=== PATIENT | female | born 1995 | race Caucasian/White ===

== ENCOUNTER 2019-03-04 19:10 | Observation (INO) | payer OTHER ==
--- NOTE | 2019-03-04 19:49 | ED ---
Abdominal Pain/Female - HPI Summary HPI Summary: The patient is a 23 y/o F presenting to [facility] accompanied by parents with a chief complaint of sudden onset lower abdominal pain onset around 1200 with worsening since. She reports that she went to [facility] once she developed chills, nausea, and vomiting at 1400 with the abdominal pain across the low abdomen still present, and it was found through blood work that she has elevated WBCs. The abdominal cramping extends from the LLQ to RLQ, but is worst at the suprapubic and umbilical regions. She has been unable to keep liquids, and she denies any diarrhea or dysuria. Currently, her symptoms are rated 9/10 in severity. She has taken three Advil at 1330, Pepto-Bismol at 1430 and 1730, and Zofran at 1845 to no relief of symptoms. She has not experienced this pain before. LNMP: 03/04/19. Takes oral control. No surgical history. PMHx: psoriasis. FHx: polycystic kidney disease. Nonsmoker, weekly EtOH, no substance use. Medications reviewed. Allergies noted. - History of Current Complaint Chief Complaint: EDAbdPain Stated Complaint: HIGH BLOODE CELL COUNT,ABDOMINAL PAIN PER PT Time Seen by Provider: 03/04/19 19:25 Hx Obtained From: Patient Onset/Duration: Sudden Onset, Lasting Hours - since 1200 today, Still Present Timing: Constant Severity Initially: Moderate Severity Currently: Severe Pain Intensity: 9 Pain Scale Used: 0-10 Numeric Location: Discrete At: RUQ, Discrete At: LUQ, Suprapubic, Umbilical Character: Cramping Aggravating Factor(s): Nothing Alleviating Factor(s): Nothing - self-administered meds to no relief Associated Signs and Symptoms: Positive: Decreased Appetite, Nausea, Vomiting, Other: - chills; Negative: dysuria. Negative: Diarrhea Allergies/Adverse Reactions: Allergies Allergy/AdvReac Type Severity Reaction Status Date / Time No Known Allergies Allergy Verified 03/04/19 19:17 Home Medications: Home Medications Norethindrone AC-Eth Estradiol [Loestrin 1.5/30-21 1.5-30 mg-Mcg] 1 tab PO DAILY 03/04/19 [History Confirmed 03/04/19] PMH/Surg Hx/FS Hx/Imm Hx Endocrine/Hematology History: Reports: Other Endocrine/Hematological Disorders - Psoriasis Denies: Hx Diabetes Respiratory History: Denies: Hx Asthma - Surgical History Surgical History: None Surgery Procedure, Year, and Place: none Infectious Disease History: No Infectious Disease History: Denies: Traveled Outside the [place] in Last 30 Days - Family History Known Family History: Positive: Renal Disease - polycystic kidney disease, Other - breast cancer in mother Negative: Cardiac Disease, Hypertension, Diabetes - Social History Alcohol Use: Weekly Hx Substance Use: No Substance Use Type: Reports: None Hx Tobacco Use: No Smoking Status (MU): Never Smoked Tobacco Review of Systems - ROS Summary Review of Systems Summary: Home Medications Medication Instructions Recorded Confirmed Type Norethindrone AC-Eth Estradiol 1 tab PO DAILY 03/04/19 03/04/19 History [Loestrin 1.5/30-21 1.5-30 mg-Mcg] Positive: Chills Positive: Abdominal Pain - across the lower abdomen worst in the suprapubic and umbilical regions, Vomiting - multiple episodes, Nausea, Other - decreased appetite and oral intake. Negative: Diarrhea Negative: dysuria All Other Systems Reviewed And Are Negative: Yes Physical Exam - Summary Physical Exam Summary: General: Well-developed, Well-nourished female. Appears to be in moderate discomfort. HEENT: Normocephalic, Atraumatic. Eyes: Conjuctiva normal, PERRL. Ears: TMs within normal limits. Nares: (-) discharge, (-) erythema. Oropharynx: Clear, mucous membranes moist, (-) exudates. Neck: Soft, FROM, (-) lymphadenopathy, (-) thyromegaly, (-) JVD. Cardiovascular: Normal sinus rhythm, (-) murmur. Lungs: Clear to auscultation bilaterally (-) wheezes, (-) rales, (-) rhonchi. Abdomen: Soft, moderate suprapubic and umbilical tenderness, non-distended, (-) organomegaly, normal bowel sounds. Back: (-) CVA tenderness Extremities: No edema. Skin: Warm, dry, (-) rash. Neuro: Alert and oriented x3, no focal deficits. Psychiatric: Mood normal, affect normal. Triage Information Reviewed: Yes Vital Signs On Initial Exam: Initial Vitals Temp Pulse Resp BP Pulse Ox 99 F 93 20 155/119 100 03/04/19 19:17 03/04/19 19:17 03/04/19 19:17 03/04/19 19:17 03/04/19 19:17 Vital Signs Reviewed: Yes Procedures - Sedation Patient Received Moderate/Deep Sedation with Procedure: No Diagnostics - Vital Signs Vital Signs Temp Pulse Resp BP Pulse Ox 03/04/19 19:25 91 100 03/04/19 19:23 86 147/99 100 03/04/19 19:17 99 F 93 20 155/119 100 - Laboratory Result Diagrams: 03/04/19 20:14 03/04/19 20:14 Lab Statement: Any lab studies that have been ordered have been reviewed, and results considered in the medical decision making process. - CT Abd/Pel CT CT Interpretation Completed By: Radiologist Summary of CT Findings: Impression: There is an appendicolith which is a maximum of 6 mm in length and the appendix is mildly dilated measuring a maximum of 8 mm diameter and isodense with no obvious periappendiceal fat stranding, therefore nonspecific but cannot exclude mild or early changes of acute appendicitis without signs of perforation. ED physician has reviewed this report. - Ultrasound Transvaginal US Ultrasound Interpretation Completed By: Radiologist Summary of Ultrasound Findings: Impression: No acute pathology. No solid pelvic mass. The right ovary is not clearly visualized (obscured by bowel gas). The left ovary is unremarkable, with no evidence of torsion. ED physician has reviewed this report. Appendix US Ultrasound Interpretation Completed By: Radiologist Summary of Ultrasound Findings: Impression: No acute findings. No definite evidence of acute appendicitis. ED physician has reviewed this report. Re-Evaluation - Re-Evaluation First Eval Re-Evaluation Time: 20:55 Change: Unchanged Comment: Patient is still in pain. We will order Morphine. Second Eval Re-Evaluation Time: 00:25 Change: Improved Comment: Medications have improved the patient's pain. We discussed all results thus far and plan for further treatment. Abdominal Pain Fem Course/Dx - Course Course Of Treatment: She will be administered fluids, Zofran for nausea, and Toradol for pain. Ultrasounds are ordered to rule out appendicitis or any pelvic conditions. The pain has continued to still be present after Toradol, so she will be given Morphine. Potassium chloride is ordered for hypokalemia. US results are negative, but we will order a CT since the appendix is not visualized. - Diagnoses Provider Diagnoses: Hypokalemia, Acute appendicitis - Provider Notifications Discussed Care Of Patient With: April Dodd - surgery Time Discussed With Above Provider: 00:28 Instructed by Provider To: Other - I discussed the patient's case wtih Dr. Dodd, and she will come to the ED to consult with the patient. At 0130, Dr. Dodd is in the ED, and after speaking with the patient, she agrees with admission for surgery for likely appendicitis. She recommends Zosyn and Morphine. Discharge ED - Sign-Out/Discharge Documenting (check all that apply): Patient Departure - Patient accepted for admission for surgery by Dr. Dodd. - Discharge Plan Condition: Stable Disposition: ADMITTED TO [facility] Referrals: [facility] - Wero [facility]INGHAM [Primary Care Provider] - - Attestation Statements Document Initiated by Scribe: Yes Documenting Scribe: Velia Granger Provider For Whom Yvetteibe is Documenting (Include Credential): Dr. Thao Leggett MD Scribe Attestation: Velia Burden scribed for Dr. Thao Leggett MD on 03/05/19 at 0143. Status of Scribe Document: Ready
[2019-03-04] MEDS ORDERED: Ondansetron INJ* 2 MG/ML VIAL ONE (19:53)
[2019-03-04] MEDS ORDERED: Ketorolac INJ* 15 MG/ML 1 ML VIAL ONE (19:53)
[2019-03-04] MEDS ORDERED: Ketorolac INJ* 15 MG/ML 1 ML VIAL IV PUSH ONE (19:54)
[2019-03-04] MEDS ORDERED: Ondansetron INJ* 2 MG/ML VIAL IV ONE (19:54)
[2019-03-04 20:25] LABS: ABS Lymphocytes 1.1 10^3/ul (1.0-4.8); ABS Monocytes 0.9 10^3/ul (0-0.8); ABS Neutrophils 19.2 10^3/ul (1.5-7.7); Hematocrit 38 % (35-47); Hemoglobin 12.9 g/dL (12.0-16.0); Lymphocyte % 5.1 %; Mean Corpuscular HGB Conc 34 g/dL (31-36); Mean Corpuscular Hemoglobin 30 pg (27-31); Mean Corpuscular Volume 88 fL (80-97); Mean Platelet Volume 8.7 fL (7.4-10.4); Platelet Count 300 10^3/uL (150-450); Red Blood Count 4.32 10^6 /uL (3.70-4.87); Red Cell Distribution Width 13 % (10-15); White Blood Count 21.2 10^3/uL (3.5-10.8)
[2019-03-04 20:33] LABS: INR 0.97 (0.82-1.09)
[2019-03-04 20:44] LABS: Urine Appearance Clear; Urine Bacteria Absent (Absent); Urine Bilirubin Negative (Negative); Urine Blood 2+ (Negative); Urine Color Straw; Urine Glucose Negative (Negative); Urine Ketones 1+ (Negative); Urine Nitrite Negative (Negative); Urine Protein Negative (Negative); Urine Red Blood Cell 1+(3-5/hpf) (Absent); Urine Specific Gravity 1.013 (1.010-1.030); Urine Squamous Epithelial Cell Present (Absent); Urine Urobilinogen Negative (Negative); Urine White Blood Cell Trace(0-5/hpf) (Absent)
[2019-03-04 20:51] LABS: ALT 10 U/L (7-52); AST 14 U/L (13-39); Albumin 4.4 g/dL (3.2-5.2); Albumin/Globulin Ratio 1.6 (1-3); Alkaline Phosphatase 48 U/L (34-104); Anion Gap 10 mmol/L (2-11); BUN/Creatinine Ratio 15.6 (8-20); Blood Urea Nitrogen 7 mg/dL (6-24); C Reactive Protein 18.61 mg/L (<8.01); CO2 Carbon Dioxide 21 mmol/L (22-32); Calcium 9.2 mg/dL (8.6-10.3); Chloride 99 mmol/L (101-111); EGFR African American 212.8 (>60); EGFR Non-African American 175.9 (>60); Globulin 2.7 g/dL (2-4); Glucose 116 mg/dL (70-100); HCG Pregnancy < 0.60 mIU/mL; Potassium 3.2 mmol/L (3.5-5.0); Sodium 130 mmol/L (135-145); Total Protein 7.1 g/dL (6.4-8.9)
[2019-03-04] MEDS ORDERED: KCL 10 MEQ/50 ML IVPREMIX* 10 MEQ/50 ML BAG IV ONE (20:57)
[2019-03-04] MEDS ORDERED: Morphine INJ* 2 MG/ML 1 ML SYRINGE (TWO MG - NEW SYRINGE VERSION) IV PRN (20:57)
[2019-03-04] MEDS ORDERED: NS 0.9% 1000 ML** 1,000 ML IV ONE (21:09)
[2019-03-04] MEDS ORDERED: Ketorolac INJ* 30 MG/ML 1 ML VIAL IV PUSH ONE (23:10)
[2019-03-04] MEDS ORDERED: Iohexol 300* (CONTRAST) 10 ML SDV IV ONE (23:30)
[2019-03-05] MEDS ORDERED: Piperacillin/Tazobac ADVAN(*) 3.375 GM in NS 0.9% 100 ML* 100 ML IVPB ONE (01:28)
[2019-03-05] MEDS ORDERED: Ondansetron INJ* 2 MG/ML VIAL IV PRN (01:29)
[2019-03-05] MEDS ORDERED: Morphine INJ* 2 MG/ML 1 ML SYRINGE (TWO MG - NEW SYRINGE VERSION) IV PRN (01:35)
--- NOTE | 2019-03-05 01:56 | HP ---
H&P (Free Text) History and Physical: Chief complaint: abdominal pain HPI: Valeria is a 23 yo woman with a history of psoriasis who presents to the ED with worsening abdominal pain. She reports the pain started suddenly at about noon and localized to the periumbilical area. She has had anorexia, nausea, and vomiting. She denies fevers. Her period started today, and she initially attributed the pain to menstrual cramps. She took ibuprofen with little relief. She did have some diarrhea this morning but no bowel movements since then. She presented to the [facility] where she was found to have an elevated WBC and was sent to the ED. She denies sick contacts. Past Medical History: Psoriasis Past Surgical History: None Home Medications Medication Instructions Recorded Confirmed Type Norethindrone AC-Eth Estradiol 1 tab PO DAILY 03/04/19 03/04/19 History [Loestrin 1.5/30-21 1.5-30 mg-Mcg] Allergies No Known Allergies Allergy (Verified 03/04/19 19:17) ROS: A complete 14-point review of systems was performed and pertinent findings are noted in HPI. Family History: Mother has a history of breast cancer. Father has history of polycystic kidney disease. Patient has not been tested. Social History: Valeria is a student at [employer]. She denies smoking or substance abuse. She drinks alcohol socially. Her parents live in [place]. Physical Exam: Temp Pulse Resp BP Pulse Ox 99 F 79 25 125/73 98 03/04/19 19:17 03/05/19 01:00 03/05/19 01:00 03/05/19 00:53 03/05/19 01:00 General: Appears uncomfortable but no acute distress. HEENT: Atraumatic, normocephalic. Pupils equal. Moist mucous membranes. Cardio: Regular rhythm and rate. Chest: Clear to auscultation and breathing comfortably on room air. Abdomen: Soft, nondistended. Tender to palpation in periumbilical region. No guarding. Extremities: Warm and well-perfused. No edema. Moves all extremities. Skin: Intact. No rashes or lesions. Neuro: Alert and oriented x3. Diagnostic Labs and Imaging: Laboratory Results WBC 21.2 10^3/uL (3.5-10.8) H 03/04/19 20:14 RBC 4.32 10^6 /uL (3.70-4.87) 03/04/19 20:14 Hgb 12.9 g/dL (12.0-16.0) 03/04/19 20:14 Hct 38 % (35-47) 03/04/19 20:14 MCV 88 fL (80-97) 03/04/19 20:14 MCH 30 pg (27-31) 03/04/19 20:14 MCHC 34 g/dL (31-36) 03/04/19 20:14 RDW 13 % (10-15) 03/04/19 20:14 Plt Count 300 10^3/uL (150-450) 03/04/19 20:14 MPV 8.7 fL (7.4-10.4) 03/04/19 20:14 Neut % (Auto) 90.4 % 03/04/19 20:14 Lymph % (Auto) 5.1 % 03/04/19 20:14 [place] % (Auto) 4.3 % 03/04/19 20:14 Eos % (Auto) 0.0 % 03/04/19 20:14 Baso % (Auto) 0.2 % 03/04/19 20:14 Absolute Neuts (auto) 19.2 10^3/ul (1.5-7.7) H 03/04/19 20:14 Absolute Lymphs (auto) 1.1 10^3/ul (1.0-4.8) 03/04/19 20:14 Absolute Monos (auto) 0.9 10^3/ul (0-0.8) H 03/04/19 20:14 Absolute Eos (auto) 0.0 10^3/ul (0-0.6) 03/04/19 20:14 Absolute Basos (auto) 0.0 10^3/ul (0-0.2) 03/04/19 20:14 Absolute Nucleated RBC 0.0 10^3/ul 03/04/19 20:14 Nucleated RBC % 0.0 03/04/19 20:14 INR (Anticoag Therapy) 0.97 (0.82-1.09) 03/04/19 20:14 Sodium 130 mmol/L (135-145) L 03/04/19 20:14 Potassium 3.2 mmol/L (3.5-5.0) L 03/04/19 20:14 Chloride 99 mmol/L (101-111) L 03/04/19 20:14 Carbon Dioxide 21 mmol/L (22-32) L 03/04/19 20:14 Anion Gap 10 mmol/L (2-11) 03/04/19 20:14 BUN 7 mg/dL (6-24) 03/04/19 20:14 Creatinine 0.45 mg/dL (0.51-0.95) L 03/04/19 20:14 Est GFR ( Amer) 212.8 (>60) 03/04/19 20:14 Est GFR (Non-Af Amer) 175.9 (>60) 03/04/19 20:14 BUN/Creatinine Ratio 15.6 (8-20) 03/04/19 20:14 Glucose 116 mg/dL (70-100) H 03/04/19 20:14 Lactic Acid 1.8 mmol/L (0.5-2.0) 03/04/19 20:14 Calcium 9.2 mg/dL (8.6-10.3) 03/04/19 20:14 Total Bilirubin 0.60 mg/dL (0.2-1.0) 03/04/19 20:14 AST 14 U/L (13-39) 03/04/19 20:14 ALT 10 U/L (7-52) 03/04/19 20:14 Alkaline Phosphatase 48 U/L (34-104) 03/04/19 20:14 C-Reactive Protein 18.61 mg/L (<8.01) H 03/04/19 20:14 Total Protein 7.1 g/dL (6.4-8.9) 03/04/19 20:14 Albumin 4.4 g/dL (3.2-5.2) 03/04/19 20:14 Globulin 2.7 g/dL (2-4) 03/04/19 20:14 Albumin/Globulin Ratio 1.6 (1-3) 03/04/19 20:14 Lipase 11 U/L (11.0-82.0) 03/04/19 20:14 Beta HCG, Quant < 0.60 mIU/mL 03/04/19 20:14 Urine Color Straw 03/04/19 20:21 Urine Appearance Clear 03/04/19 20: Urine pH 6.0 (5-9) 03/04/19 20:21 Ur Specific [place] 1.013 (1.010-1.030) 03/04/19 20:21 Urine Protein Negative (Negative) 03/04/19 20:21 Urine Ketones 1+ (Negative) A 03/04/19 20:21 Urine Blood 2+ (Negative) A 03/04/19 20:21 Urine Nitrate Negative (Negative) 03/04/19 20: Urine Bilirubin Negative (Negative) 03/04/19 20: Urine Urobilinogen Negative (Negative) 03/04/19 20:21 Ur Leukocyte Esterase Negative (Negative) 03/04/19 20: Urine WBC (Auto) Trace(0-5/hpf) (Absent) 03/04/19 20: Urine RBC (Auto) 1+(3-5/hpf) (Absent) A 03/04/19 20:21 Ur Squamous Epith Cells Present (Absent) A 03/04/19 20: Urine Bacteria Absent (Absent) 03/04/19 20: Urine Glucose Negative (Negative) 03/04/19 20:21 Abdominal US: No evidence of acute appendicitis but appendix not identified. Transvaginal US: Unremarkable. Right ovary not visualized. CT abdomen/pelvis: Appendix 8mm. Appendicolith 6mm. Minimal periappendiceal stranding. Assessment and Plan: 23 yo with early acute appendicitis. Will plan to admit and schedule surgery for later today. -Start Zosyn. -Pain control with morphine prn -Zofran for nausea -NPO. LR @ 75 ml/h
[2019-03-05] MEDS ORDERED: Lactated Ringers 1000 ML Bag* 1,000 ML IV SCH (02:00)
[2019-03-05] MEDS ORDERED: Piperacillin/Tazobactam VIAL*) 3.375 GM in NS 0.9% 100 ML* 100 ML IVPB SCH (06:00)
[2019-03-05] MEDS ORDERED: NS 0.9% 1000 ML** 1,000 ML IV SCH (08:30)
[2019-03-05] MEDS ORDERED: Morphine INJ* 4 MG/ML 1 ML SYRINGE (NEW SYRINGE VERSION) ONE (09:22)
[2019-03-05] MEDS ORDERED: Rocuronium* 10 MG/ML VIAL ONE (09:27)
[2019-03-05] MEDS ORDERED: KETAMINE HCL* 50 MG/ML 10 ML VIAL ONE (09:30)
[2019-03-05] MEDS ORDERED: fentaNYL* 50 MCG/ML 2 ML VIAL (100 MCG VIAL) ONE (09:30)
[2019-03-05] MEDS ORDERED: Midazolam* 1 MG/ML 2 ML VIAL (2 MG) ONE (09:31)
--- NOTE | 2019-03-05 09:40 | PN ---
Progress Note - Progress Note Date of Service: 03/05/19 Note: Valeria reports the pain has been tolerable and has not needed more morphine after arriving to the floor. She denies nausea and is actually hungry this morning. No fevers or chills. Temp Pulse Resp BP Pulse Ox 98.3 F 63 18 106/55 99 03/05/19 07:26 03/05/19 07:26 03/05/19 09:30 03/05/19 07:26 03/05/19 07:26 No acute distress. Regular rhythm and rate. Clear to auscultation and breathing comfortably on room air Abdomen soft, nondistended. Tender to palpation in the infraumbilical area and RLQ. No guarding or rebound. Extremities warm and well-perfused. Alert and oriented x3 A&P: 23F with acute appendicitis. -OR today for lap appendectomy. Discussed benefits and risks including but not limited to bleeding, infection, bowel injury. Also discussed nonoperative management. She is not an ideal candidate since she has an appendicolith and there is a risk of recurrence. The patient and her mother agree with appendectomy. -NPO. NS@ 75ml -Patient received Zosyn this morning.
[2019-03-05] MEDS ORDERED: Dexamethasone IV* 4 MG/ML 1 ML (4 MG) IV SLOW PU ONE (09:47)
[2019-03-05] MEDS ORDERED: Dexamethasone IV* 4 MG/ML 1 ML (4 MG) ONE (09:47)
[2019-03-05] MEDS ORDERED: Famotidine IV* 10 MG/ML 2 ML (20 mg) ONE (09:48)
[2019-03-05] MEDS ORDERED: Famotidine IV* 10 MG/ML 2 ML (20 mg) IV SLOW PU ONE (09:48)
[2019-03-05] MEDS ORDERED: Lidocaine 1% w EPI 1:200,000* SDV 30 ML VIAL ONE (10:19)
[2019-03-05] MEDS ORDERED: Bupivacaine 0.5%* 50 ML MDV VIAL ONE (10:55)
[2019-03-05] MEDS ORDERED: Lidocaine 2% PF * 5 ML VIAL ONE (11:16)
[2019-03-05] MEDS ORDERED: Glycopyrrolate IV* 0.2 MG/ML 1 ML VIAL ONE (11:17)
[2019-03-05] MEDS ORDERED: Neostigmine Methylsulfate* 3 MG/3 ML SYRINGE ONE (11:18)
[2019-03-05] MEDS ORDERED: DiMENhydriNATE IV* 50 MG/ML VIAL IV PUSH PRN (11:30)
[2019-03-05] MEDS ORDERED: fentaNYL* 50 MCG/ML 2 ML VIAL (100 MCG VIAL) IV PRN (11:30)
[2019-03-05] MEDS ORDERED: Naloxone* 0.4 MG/ML 1 ML VIAL IV PRN (11:30)
[2019-03-05] MEDS ORDERED: Ketorolac INJ* 30 MG/ML 1 ML VIAL ONE (11:31)
[2019-03-05] MEDS ORDERED: Ondansetron INJ* 2 MG/ML VIAL ONE (11:31)
--- NOTE | 2019-03-05 12:39 | BRIEFOPN ---
Brief Operative/Procedure Note - Operation Details Pre-Op Diagnosis: Acute appendicitis Post-Op Diagnosis: Same Procedures: Laparoscopic appendectomy Surgeon(s)/Proceduralists: April Dodd. Guillermo Wilson Anesthesia: General Estimated Blood Loss: Minimal Findings: Moderately inflamed appendix Specimen(s)/Culture(s) Description: Appendix Complications: None
[2019-03-05] MEDS ORDERED: oxyCODONE TAB* 5 MG TAB PO PRN (12:44)
[2019-03-05] MEDS ORDERED: Acetaminophen TAB* 325 MG PO PRN (12:44)
[2019-03-05 15:07] VITALS: BP 135/78
--- NOTE | 2019-03-06 11:52 | OP ---
OPERATIVE REPORT: DATE OF OPERATION: 03/05/19 DATE OF : 89 SURGEON: April Dodd MD [employer]HT[employer] WORKER HELPER: Guillermo Wilson MD ANESTHESIA: General. PRE-OPERATIVE DIAGNOSIS: Acute appendicitis. POST-OPERATIVE DIAGNOSIS: Acute appendicitis. OPERATIVE PROCEDURE: Laparoscopic appendectomy. ESTIMATED BLOOD LOSS: Minimal. INDICATIONS: Valeria Arceo is a 23-year-old otherwise healthy woman, who presented to the ED with worsening periumbilical abdominal pain, nausea, vomiting, and anorexia. She was found to have an elevated white count up to 21. CT scan showed appendix 8 mm with minimal periappendiceal stranding. There was also an appendicolith. Her physical exam was consistent with acute appendicitis. I discussed nonoperative management of acute appendicitis with the patient and her parents. I discussed that there is a risk of recurrence with nonoperative management, as well as failure of conservative management due to the presence of appendicolith. I discussed risks and benefits of appendectomy with risks including, but not limited to bleeding, infection, bowel injury. The patient and her parents agreed to proceed with surgery. FINDINGS: Inflamed, nonperforated appendix. DESCRIPTION OF PROCEDURE: The patient was brought back to the OR and placed in the supine position on the OR table. SCDs were placed. The patient had been receiving Zosyn on the floor, and the antibiotic was completed after she arrived in the OR. General anesthesia was induced. The abdomen was prepped and draped in the usual sterile fashion. A time-out was called confirming the patient's name, date of , and procedure. A curvilinear incision was made inferior to the umbilicus. The incision was taken down to the fascia with blunt dissection. The fascia was incised vertically with a scalpel. The peritoneum was entered sharply using Metzenbaum scissors. A blunt trocar was placed into the abdomen. Pneumoperitoneum to 15 mmHg was achieved. Upon inspection of the abdomen, there did not appear to be any bowel injury or bleeding. The appendix could be seen in the right lower quadrant. It did appear inflamed but was not perforated. A 5 mm trocar was placed in the left lower quadrant under direct visualization. A second 5 mm trocar was placed in the suprapubic region under direct visualization. Next, the appendix was elevated. A LigaSure device was used to divide the periappendiceal fat near the base of the appendix. Using a combination of blunt dissection and LigaSure, the base of the appendix was stripped of fat. A stapler was used to resect the appendix at the base. The staple line was intact. There was no bleeding seen from the mesoappendix. There was a minimal amount of murky fluid which was suctioned out. The colon and terminal ileum appeared healthy. The appendix was placed in a bag and removed. The appendix was sent to Pathology for a permanent section. The trocars were removed under direct visualization and there was no bleeding. The infraumbilical trocar site was closed using 0-Vicryl to reapproximate the fascia. The skin was closed with a running 4-0 Monocryl. The other trocar sites were closed with interrupted 4-0 Monocryl suture. The incisions were covered with surgical glue. The patient was awakened and extubated. She was brought to the PACU in stable condition. All needle and sponge counts were correct. [id number]/[facility] #: [id number] MTDD
--- NOTE | 2019-03-07 09:55 | DS ---
Orthopedic Discharge Summary - Discharge Summary Date of Admission:03/05/19 Date of Discharge: [03/05/19] Date of Surgery: [03/05/19] Attending Provider: [April Dodd] Pre-operative Diagnosis: [Acute appendicitis] Operative Procedure: [Laparoscopic appendectomy] Disposition of Patient: [Home] Condition of Patient: [Stable] History: GABY HURD is a 23 year old F who presented to the ED with abdominal pain. Her physical exam and lab findings were consistent with acute appendicitis. Hospital Course: GABY was admitted to [facility] on 03/05/19. She was started on Zosyn. She was brought to the operating room on 03/05/19 for laparoscopic appendectomy. She recovered in the PACU where she tolerated oral intake and pain was tolerable. She was deemed medically stable for discharge. Home Medications Medication Instructions Recorded Confirmed Type Norethindrone AC-Eth Estradiol 1 tab PO DAILY 03/04/19 03/04/19 History [Loestrin 21 1.5-30 Tablet] oxyCODONE/Acetamin 5/325 MG* 1 tab PO Q4H PRN #8 tab MDD 4 03/05/19 Rx [Percocet 5/325 TAB*]
== END 2019-03-05 15:00 | disposition home or self-care (01) ==
LOC: ED 19:10 → SSU 03-05 01:31
PROVIDERS: ADMIT Surgery Surgical Critical Care; ATTEND Surgery Surgical Critical Care
DX: K35.80 Unspecified acute appendicitis (principal); L40.9 Psoriasis, unspecified; R10.9 Unspecified abdominal pain; Z79.3 Long term (current) use of hormonal contraceptives
CPT/HCPCS: 36415; 74177; 76705; 76830; 80053; 81003; 81015; 83605; 83690; 84702; 85025; 85610; 86140; 87040; 87086; 88304; 96361; 96365; 96366; 96367; 96375; 96376; 99284; C1776; G0378; J1100; J1240; J1885; J2001; J2250; J2270; J2405; J2543; J2710; J3010; J3480; J3490; Q9967